=== PATIENT | male | born 1960 | race Two or more races ===

== ENCOUNTER 2023-12-07 21:09 | Emergency (ER) | payer BC, OTHER ==
[~2023-12-07] VITALS: Ht 175.3 cm; Wt 88.2 kg
[2023-12-08] MEDS ORDERED: CLIN150C PO (00:03)
[2023-12-08] MEDS ORDERED: IBUP-1455 PO (00:03)
[2023-12-08] MEDS: IBUPROFEN 800 MG TAB PO ONE (01:09)
[2023-12-08] MEDS: CLINDAMYCIN HCL 150 MG CAP PO ONE (01:10)
[2023-12-08 01:49] VITALS: BP 141/87; PULSE 78; RESP 18; TEMP 98; O2SAT 94
== END 2023-12-08 02:03 | disposition home or self-care (01) ==
LOC: ER 21:09
DX: L03.113 Cellulitis of right upper limb (principal)

== ENCOUNTER 2024-12-04 20:20 | Emergency (ER) | payer BC ==
[~2024-12-04] VITALS: Ht 175.3 cm; Wt 87.1 kg
[~2024-12-04 20:20] MED LIST: CLIN150C PO; IBUP-1455 PO
[2024-12-04] MEDS ORDERED: LORA10CA PO (22:13)
[2024-12-04] MEDS ORDERED: PRED20TA2 PO (22:13)
--- NOTE | 2024-12-04 22:13 | ED.PDOC ---
HPI Allergic reaction HPI Comments 64-year-old male presents to ER with complaints of allergic reaction x1 day. Patient reports that he started developing itchy red hives to bilateral arms and bilateral legs at 8:00 a.m. this morning. States he has had similar symptoms in the past and usually takes Jenny with good relief. Notes that he did take Jenny today with slight relief prompting him to come to ER for further evaluation. Notes he is allergic to penicillins and sesame oil, denying any known exposure to these allergies and denies any known triggers for his hives. Patient presents to ER ambulatory on arrival, with steady gait, in no distress. Denies shortness of breath, difficulty swallowing, chest pain, nausea/vomiting, numbness/tingling or any further symptoms/complaints Chief Complaint: Allergic Reaction Time Seen by MD: 20:57 Primary Care Provider: Fred Velasquez Notes: Nurses Notes, Medications, Allergies Allergies: Coded Allergies: Penicillins (Verified Allergy, Unknown, 12/04/24) Sesame Oil (Verified Allergy, Unknown, 12/04/24) Home Meds Active Scripts Prednisone (Prednisone) 20 Mg Tab, 20 MG PO BID for 5 Days, #10 TAB 0 Refills Prov:RENNY BROCK 12/04/24 Loratadine (Claritin) 10 Mg Cap, 10 MG PO DAILY PRN, #30 CAP 0 Refills Prov:RENNY BROCK 12/04/24 Ibuprofen Micronized (Ibuprofen) 800 Mg Tab, 800 MG PO [id number] PRN, #20 TAB Prov:JUAN WHITE 12/08/23 Clindamycin Hcl (CLEOCIN) 150 Mg Cap, 450 MG PO TID for 7 Days, #63 CAP Prov:JUAN WHITE 12/08/23 Information Source: Patient Mode of Arrival: Ambulatory Past Medical History PAST MEDICAL HISTORY: Denies Surgical History: Denies all surgeries Family History Family History: Unknown Social History Smoker: Non-Smoker Alcohol: Denies ETOH Use Drugs: Denies Drug Use Lives In: Home Constitutional: denies: chills, diaphoresis, fatigue, fever, malaise, sweats, weakness, others EENTM: denies: blurred vision, double vision, ear bleeding, ear discharge, ear drainage, ear pain, ear ringing, eye pain, eye redness, hearing loss, mouth pain, mouth swelling, nasal discharge, nose bleeding, nose congestion, nose pain, photophobia, tearing, throat pain, throat swelling, voice changes, others Respiratory: denies: cough, hemoptysis, orthopnea, SOB at rest, shortness of breath, SOB with excertion, stridor, wheezing, others Cardiovascular: denies: chest pain, dizzy spells, diaphoresis, Dyspnea on exertion, edema, irregular heart beat, left arm pain, lightheadedness, palpit ations, PND, syncope, others Gastrointestinal: denies: abdomen distended, abdominal pain, blood streaked b owels, constipated, diarrhea, dysphagia, difficulty swallowing, hematemesis, melena, nausea, poor appetite, poor fluid intake, rectal bleeding, rectal pain, vomiting, others Genitourinary: denies: burning, dysuria, flank pain, frequency, hematuria, incontinence, penile discharge, penile sore, pain, testicle pain, testicle swelling, urgency, others Neurological: denies: dizziness, fainting, headache, left sided numbness, left sided weakness, numbness, paresthesia, pre-existing deficit, right sided numbness, right sided weakness, seizure, speech problems, tingling, tremors, weakness, others Musculoskeletal: denies: back pain, gout, joint pain, joint swelling, muscle pain, muscle stiffness, neck pain, others Integumetry: reports: others (As stated in HPI) Allergic/Immunocompromised: reports: others (As stated in HPI) Hematologic/Lymphatic: denies: anemia, blood clots, easy bleeding, easy bruising, swollen glands, others Endocrine: denies: excessive hunger, excessive sweating, excessive thirst, excessive urination, flushing, intolerance to cold, intolerance to heat, unexp lained weight gain, unexplained weight loss, others Psychiatric: denies: anxiety, bipolar disorder, depression, hopeless, panic disorder, schizophrenia, sleepless, suicidal, others Physical Exam General Appearance: No Apparent Distress HEENT: Normal ENT Inspection, PERRL/EOMI, Pharynx Normal, TMs Normal Neck: Full Range of Motion, Non-Tender, Normal Respiratory: Chest Non-Tender, Lungs Clear, No Accessory Muscle Use, No Respiratory Distress, Normal Breath Sounds Cardiovascular: No Murmur, No Gallop, Regular Rate/Rhythm Breast Exam: Deferred Gastrointestinal: NOT DONE Genitalia: Deferred Pelvic: Deferred Rectal: Deferred Extremities: Normal capillary refill, Normal range of motion Neurologic: Alert, [employer] professor II-XII nml as Tested, No Motor Deficits, Normal Affect, Normal Mood, No Sensory Deficits Cerebellar Function: Normal Reflexes: Normal Skin: Dry, Warm, Other (Moderate urticaria noted to bilateral arms and bilateral legs. No angioedema/further skin changes noted) Peripheral Pulses: 2+ Radial (R), 2+ Radial (L), 2+ Brachial (R), 2+ Brachial (L) Lymphatic: No Adenopathy Was a procedure done? Was a procedure done?: No Sedation Sedation?: No Differential diagnosis (all) Differential Diagnosis: Anaphylaxis, Angioedema, Bronchospasm, Respiratory Failure X-Ray, Labs, Meds, VS Vital Signs Date Time Temp Pulse Resp B/P (MAP) Pulse Ox O2 Delivery O2 Flow Rate FiO2 12/04/24 21:11 97.9 91 18 154/99 (117) 97 97.9 Solu-Medrol 125 mg IM ordered Claritin 10 mg p.o. 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 Patient verbalized understanding and agreeable with current plan of care Advised to return to ER immediately if symptoms worsen Time of 1ST Reevaluation: 21:54 Reevaluation 1ST: N/A Patient Education/Counseling: Diagnosis, Treatment, Prognosis, Need For Follow Up Family Education/Counseling: No Family Present Departure 1 Departure Time of Disposition: 22:10 Impression: Primary Impression: Allergic reaction Qualified Codes: T78.40XA - Allergy, unspecified, initial encounter Disposition: HOME / SELF CARE / HOMELESS Condition: Stable e-Prescriptions Prednisone (Prednisone) 20 Mg Tab 20 MG PO BID for 5 Days, #10 TAB 0 Refills Prov: RENNY BROCK 12/04/24 Loratadine (Claritin) 10 Mg Cap 10 MG PO DAILY PRN, #30 CAP 0 Refills Prov: RENNY BROCK 12/04/24 Discharged With: Self Critical Care Note Critical Care Time?: No Stability Stability form required: No Heart Score Heart Score: Heart Score Response (Comments) Value History N/A 0 EKG N/A 0 Age N/A 0 Risk Factors N/A 0 Troponin N/A 0 Total 0 RENNY BROCK December 04, 2024 22:13
[2024-12-04 22:18] VITALS: BP 154/99; PULSE 91; RESP 18; TEMP 97.9; O2SAT 97
[2024-12-04] MEDS: methylPREDNISolone SOD SUCC 125 MG/2 ML VL IM ONE (22:47)
[2024-12-04] MEDS: LORATADINE 10 MG TAB PO ONE (22:48)
== END 2024-12-04 22:49 | disposition home or self-care (01) ==
LOC: ER 20:20
DX: T78.40XA Allergy, unspecified, initial encounter (principal); L29.9 Pruritus, unspecified; Z79.52 Long term (current) use of systemic steroids; Z79.899 Other long term (current) drug therapy; Z88.0 Allergy status to penicillin; Z91.018 Allergy to other foods; X58.XXXA Exposure to other specified factors, initial encounter
CPT/HCPCS: 96372; 99283; J2919